=== PATIENT | female | born 1990 | race Caucasian/White ===

== ENCOUNTER 2020-03-09 21:58 | Emergency (ER) | payer BC, OTHER ==
[~2020-03-09] VITALS: Ht 167.6 cm; Wt 63.5 kg
[~2020-03-09 21:58] MED LIST: [UNRECOGNIZED DRUG - CODE]
[2020-03-09] MEDS ORDERED: SODIUM CHLORIDE 0.9% 1,000 ML IVB ONE (23:45)
[2020-03-10 00:04] LABS: Basophils # (auto) 0.1 10 ^3/uL (0-0.2); Basophils % (auto) 0.9 % (0.0-2.0); Eosinophils # (auto) 0.1 10 ^3/uL (0-0.8); Hematocrit 38.4 % (36.0-46.0); Hemoglobin 13.3 g/dL (12.2-16.2); Lymphocytes # (auto) 2.2 10 ^3/uL (0.4-5.4); Lymphocytes % (auto) 26.1 % (10.0-50.0); Mean Corpuscular Hemoglobin 31.9 pg (28.0-32.0); Mean Corpuscular Hgb Conc. 34.7 g/dL (32.0-36.0); Mean Corpuscular Volume 92.1 fL (80.0-100.0); Monocytes # (auto) 0.8 10 ^3/uL (0-1.3); Monocytes % (auto) 9.8 % (0.0-12.0); Neutrophils # (auto) 5.2 10 ^3/uL (1.6-8.6); Neutrophils % (auto) 62.2 % (37.0-80.0); Platelet Count (auto) 303 10^3/uL (140-450); Red Blood Cells 4.17 10^6/uL (4.0-5.20); Red Cell Distribution Width 12.7 % (11.8-14.3); White Blood Cell 8.3 10^3/uL (4.4-10.8)
[2020-03-10 00:19] LABS: Alanine Aminotransferase 34 U/L (13-56); Albumin 4.2 g/dL (3.4-5.0); Anion Gap 8 (5-15); Aspartate Aminotransferase 17 U/L (15-37); BUN/Creatinine Ratio 14.7; Blood Urea Nitrogen 10 mg/dL (7-18); Calcium 8.2 mg/dL (8.5-10.1); Carbon Dioxide 22 mmol/L (21-32); Chloride 109 mmol/L (98-107); GFR African American 131 mL/min; GFR Non-African American 108 mL/min; Glucose 94 mg/dL (74-106); Magnesium 1.8 mg/dL (1.6-2.6); Potassium 3.5 mmol/L (3.5-5.1); Sodium 139 mmol/L (136-145)
[2020-03-10 00:21] LABS: Salicylate < 1.7 mg/dL (2.8-20.0)
[2020-03-10 00:22] LABS: Alkaline Phosphatase 55 U/L (45-117); Bilirubin, Total 0.3 mg/dL (0.2-1.0)
[2020-03-10 00:24] LABS: Acetaminophen < 2.0 ug/mL (10-30)
[2020-03-10] MEDS ORDERED: ONDANSETRON HCL 4 MG/2 ML VIAL IV ONE (03:30)
[2020-03-10 06:44] LABS: Amphetamine Screen, Urine POSITIVE (NEGATIVE); Barbiturate Scree,Urine NEGATIVE (NEGATIVE); Benzodiazephine Screen, Urine NEGATIVE (NEGATIVE); Cannabinoid Screen, Urine POSITIVE (NEGATIVE); Cocaine Screen, Urine NEGATIVE (NEGATIVE); Opiate Scree,Urine NEGATIVE (NEGATIVE); Phencyclidine Screen, Urine NEGATIVE (NEGATIVE)
[2020-03-10] MEDS ORDERED: LORazepam 0.5 MG TAB PO ONE ×2 (08:30→17:15)
[2020-03-11] MEDS ORDERED: LORazepam 0.5 MG TAB PO ONE ×2 (04:15→10:15)
[2020-03-11 09:37] VITALS: BP 120/88
== END 2020-03-11 10:26 | disposition home or self-care (01) ==
LOC: ER 21:58 → EDBD 21:58 → ER 03-11 10:26
DX: T14.91XA Suicide attempt, initial encounter (principal); Z20.822 Contact with and (suspected) exposure to COVID-19; X83.8XXA Intentional self-harm by other specified means, initial encounter; Y93.89 Activity, other specified; Y92.89 Other specified places as the place of occurrence of the external cause; Y99.8 Other external cause status
CPT/HCPCS: 36415; 71045; 80053; 80307; 80320; 80329; 81025; 83735; 85025; 87426; 93005; 96361; 96374; 99285; C9803; U0003